=== PATIENT | male | born 1930 | race Caucasian/White ===

== ENCOUNTER 2017-03-02 09:18 | Inpatient (IN) | payer MEDICARE, OTHER ==
[~2017-03-02] VITALS: Ht 167.6 cm; Wt 66.0 kg
[~2017-03-02 09:18] MED LIST: ACIPHEX20 MG PO; ALBUTEROL17 GM INH; ANTIVERT25 MG PO; ASPER-FLEX85 GM TP; ASPIR 8181 M1 PO; ATACAND4 MG; AUGMENTIN500 MG PO; CINNAMON500 MG PO; COREG3.125 M1 PO; D-VERT25 MG PO; DIOVAN HCT 80/11 TA1 PO; FLOMAX0.4 MG PO; FLOXIN OTIC5 ML OT; GLIPIZIDE10 MG PO; GLUCOTROL10 M1 PO; LEVAQUIN500 MG PO; LIPITOR40 M1 PO; LOSARTAN-HCTZ1 EAC3 PO; METAMUCIL FIB1 WAFER; METAMUCIL1 PKT PO; PLAVIX75 M1 PO; RANEXA500 M1 PO; TYLENOL325 MG PO; ZOFRAN4 M1 PO; ZOFRAN4 MG PO
[2017-03-02 10:15] LABS: BASO % 0.3 % (0-2); EOS % 0.4 % (0-7); HCT-HEMATOCRIT 45.8 % (36.0-53.5); HGB-HEMOGLOBIN 15.1 gm/dl (13.5-17.0); IMMATURE GRANULOCYTES ABSOLUTE 0.02 tho/cmm (0-0.03); IMMATURE GRANULOCYTES PERCENT 0.3 % (0-0.3); LYMPH % 8.5 % (20-45); LYMPH ABSOLUTE COUNT 0.7 tho/cmm (0.8-4.5); MCH (MEAN CORPUSCULAR HGB) 28.7 pg (28.0-32.0); MCV (MEAN CELL VOLUME) 87.1 fl (82.0-96.0); MEAN PLATELET VOLUME 12.2 cmc (9.4-12.4); MONO % 7.5 % (0-12); MONOCYTE ABSOLUTE COUNT 0.6 tho/cmm (0.0-1.2); NEUTROPHIL ABSOLUTE COUNT 6.5 tho/cmm (1.6-8.0); NEUTROPHIL-AUTOMATED 6.5 tho/cmm (1.6-8.0); PLATELET COUNT 234 tho/cmm (150-450); RED BLOOD COUNT 5.26 mil/cmm (4.40-5.70); RED CELL DISTRIBUTION WIDTH 16.4 % (12.4-16.4); WHITE BLOOD COUNT 7.9 tho/cmm (4.0-10.0)
[2017-03-02] MEDS ORDERED: GLUCOTROL5 M1 PO ×2 (10:21)
[2017-03-02] MEDS ORDERED: CINNAMON500 M1 PO (10:24)
[2017-03-02] MEDS ORDERED: PRESERVISION A1 EAC5 PO (10:26)
[2017-03-02] MEDS ORDERED: THERAPEUTIC-M1 EAC3 PO (10:27)
[2017-03-02 10:30] LABS: ALB/GLOB RATIO 0.7 (0.8-2.0); ALBUMIN 3.1 g/dl (3.5-5.0); ALKALINE PHOSPHATASE 115 U/L (33-138); ALT/SGPT 94 U/L (12-78); BILIRUBIN,TOTAL 1.5 mg/dl (0.0-1.5); BLOOD UREA NITROGEN 69 mg/dl (6-24); CALCIUM 9.5 mg/dl (8.5-10.5); CARBON DIOXIDE-VENOUS 19 mmol/L (22-32); CHLORIDE 108 mmol/l (96-110); CREATININE 2.23 mg/dl (0.60-1.30); GLUCOSE 238 mg/dL (70-110); SODIUM 142 mmol/L (135-145); eGFR VALUE FOR BLACK 29 mL/Min
[2017-03-02 10:31] LABS: ANION GAP 21 mmol/L (0-20); AST/SGOT 39 U/L (10-40); CREATINE PHOSPHOKINASE (CPK) 134 U/L (35-232); POTASSIUM 5.6 mmol/L (3.7-5.1)
[2017-03-02] MEDS ORDERED: MILK OF MAGNESIA PO (11:08)
[2017-03-02 13:03] LABS: KETONE-BETA (WHOLE BLOOD) 0.9 mmol/L (0.0-0.6)
[2017-03-02 13:29] LABS: MAGNESIUM 2.1 mg/dl (1.8-2.6)
[2017-03-03 01:40] LABS: BASO % 0.3 % (0-2); EOS % 2.9 % (0-7); EOSINOPHIL ABSOLUTE COUNT 0.3 tho/cmm (0.0-0.7); HCT-HEMATOCRIT 41.9 % (36.0-53.5); HGB-HEMOGLOBIN 14.1 gm/dl (13.5-17.0); IMMATURE GRANULOCYTES ABSOLUTE 0.03 tho/cmm (0-0.03); IMMATURE GRANULOCYTES PERCENT 0.3 % (0-0.3); LYMPH % 12.2 % (20-45); LYMPH ABSOLUTE COUNT 1.1 tho/cmm (0.8-4.5); MCH (MEAN CORPUSCULAR HGB) 28.8 pg (28.0-32.0); MCHC MEAN CORPUSCULAR HGB CONC 33.7 % (32.0-36.0); MCV (MEAN CELL VOLUME) 85.5 fl (82.0-96.0); MEAN PLATELET VOLUME 11.8 cmc (9.4-12.4); MONO % 8.2 % (0-12); MONOCYTE ABSOLUTE COUNT 0.7 tho/cmm (0.0-1.2); NEUTROPHIL ABSOLUTE COUNT 6.6 tho/cmm (1.6-8.0); NEUTROPHIL-AUTOMATED 6.6 tho/cmm (1.6-8.0); NEUTROPHILS % 76.1 % (40-80); PLATELET COUNT 226 tho/cmm (150-450); WHITE BLOOD COUNT 8.7 tho/cmm (4.0-10.0)
[2017-03-03 02:20] LABS: ALB/GLOB RATIO 0.8 (0.8-2.0); ALBUMIN 2.8 g/dl (3.5-5.0); ALKALINE PHOSPHATASE 109 U/L (33-138); ALT/SGPT 79 U/L (12-78); AST/SGOT 32 U/L (10-40); BILIRUBIN,TOTAL 1.1 mg/dl (0.0-1.5); BLOOD UREA NITROGEN 72 mg/dl (6-24); CARBON DIOXIDE-VENOUS 23 mmol/L (22-32); CHLORIDE 111 mmol/l (96-110); CHOLESTEROL 117 mg/dl (120-200); CREATININE 2.12 mg/dl (0.60-1.30); HDL CHOLESTEROL 49 mg/dl (40-60); LDL CHOLESTEROL 56 mg/dl (0-99); SODIUM 147 mmol/L (135-145); TRIGLYCERIDES 63 mg/dl (<149); VLDL 13 mg/dl (0-30); eGFR VALUE FOR BLACK 31 mL/Min
[2017-03-03 02:39] LABS: ANION GAP 18 mmol/L (0-20); GLUCOSE 99 mg/dL (70-110); POTASSIUM 4.6 mmol/L (3.7-5.1)
[2017-03-03 07:55] LABS: URINE BILIRUBIN NEGATIVE (NEG); URINE BLOOD NEGATIVE (NEG); URINE GLUCOSE (UA) NEGATIVE (NEG); URINE KETONE SMALL (NEG); URINE LEUKOCYTE ESTERASE NEGATIVE (NEG); URINE NITRITE NEGATIVE (NEG); URINE PROTEIN MODERATE (NEG); URINE SPECIFIC GRAVITY 1.015 (1.003-1.030)
[2017-03-03 07:57] LABS: URINE APPEARANCE CLEAR; URINE COLOR DARK YELLOW
[2017-03-03 08:04] LABS: URINE AMORPHOUS 1+; URINE EPITHELIAL CELLS RARE /[HPF] (0-10); URINE RBC 0 /[HPF] (0-5); URINE WBC RARE /[HPF] (0-5)
[2017-03-04] MEDS ORDERED: MORPHINE S20 MG/1 M1 SL (15:16)
[2017-03-04] MEDS ORDERED: LORAZEPAM I2 MG/1 ML SL (15:17)
== END 2017-03-04 15:35 | disposition hospice, inpatient (51) | DRG 189 ==
LOC: EDMED → EDBD 09:18 → EMR2 13:11 → 5WE 13:11
PROVIDERS: Emergency Medicine; ADMIT Internal Medicine
DX: J96.01 Acute respiratory failure with hypoxia (principal); N17.9 Acute kidney failure, unspecified; I47.2 Ventricular tachycardia; N18.3 Chronic kidney disease, stage 3 (moderate); T17.990A Other foreign object in respiratory tract, part unspecified in causing asphyxiation, initial encounter; I50.42 Chronic combined systolic (congestive) and diastolic (congestive) heart failure; E11.9 Type 2 diabetes mellitus without complications; G61.81 Chronic inflammatory demyelinating polyneuritis; I12.9 Hypertensive chronic kidney disease with stage 1 through stage 4 chronic kidney disease, or unspecified chronic kidney disease; E78.5 Hyperlipidemia, unspecified; K21.9 Gastro-esophageal reflux disease without esophagitis; H91.10 Presbycusis, unspecified ear; I25.5 Ischemic cardiomyopathy; W18.30XA Fall on same level, unspecified, initial encounter; I25.10 Atherosclerotic heart disease of native coronary artery without angina pectoris; Z91.19 Patient's noncompliance with other medical treatment and regimen; Z51.5 Encounter for palliative care; Z66 Do not resuscitate; Z79.4 Long term (current) use of insulin; Z79.82 Long term (current) use of aspirin; H91.90 Unspecified hearing loss, unspecified ear
CPT/HCPCS: C8929; G8996-GN-CK; G8997-GN-CI; J1650; J1815; J1940; J2543; J7030